=== PATIENT | female | born 1985 | race Hispanic/Latino ===

== ENCOUNTER 2017-01-25 17:50 | Emergency (ER) | payer OTHER ==
[2017-01-25 17:51] VITALS: BMI 32.5
[2017-01-25 17:59] VITALS: BP 119/72; PULSE 82; RESP 18; TEMP 98; O2SAT 99
--- NOTE | 2017-01-25 18:16 | ED PDOC ---
Arrival/HPI - General Chief Complaint: Needle Stick Time Seen by Provider: 01/25/17 18:05 Historian: Patient - History of Present Illness Narrative History of Present Illness (Text): Estefania is a 31 y/o female who presents to the ED for evaluation of needle stick, occurring this evening just prior to arrival. Patient is a surgical sales representative, and was punctured with a suture needle after it had come into contact with her patient. She reports that her patient was a 51 y/o female with a history of diabetes, hypertension, and CHF, who reportedly had a negative hepatitis panel recently drawn on 01/02/17, but has had blood transfusions since she this hepatitis panel was drawn. Patient states she did not see any blood from wound and she was wearing 2 gloves at the time. Betadine was applied to the site after injury. Tetanus is up to date. PMD: Unknown Time/Duration: Prior to Arrival Symptom Onset: Sudden Past Medical History - Provider Review Nursing Documentation Reviewed: Yes - Travel History Have you recently traveled outside [place] w/in the past 3 mons?: No - Past History Past History: No Previous - Infectious Disease Hx of Infectious Diseases: None - Tetanus Immunization Tetanus Immunization: Up to Date - Reproductive Menopause: No - Past Medical History Past Medical History: No Previous - Psychiatric Hx Substance Use: No - Surgical History Hx Tonsillectomy: Yes - Anesthesia Hx Anesthesia: No Hx Anesthesia Reactions: No Hx Malignant Hyperthermia: No - Suicidal Assessment Suicidal Thoughts: No Family/Social History - Physician Review Nursing Documentation Reviewed: Yes Family/Social History: No Known Family HX Smoking Status: Never Smoked Hx Alcohol Use: Yes Frequency of alcohol use: Socially Hx Substance Use: No Allergies/Home Meds Allergies/Adverse Reactions: Allergies No Known Allergies Allergy (Verified 06/17/16 09:36) Review of Systems - Physician Review All systems were reviewed & negative as marked: Yes - Review of Systems Skin: Other (Needle stick) Physical Exam Vital Signs Reviewed: Yes Vital Signs Temp Pulse Resp BP Pulse Ox 01/25/17 17:55 98 F 82 18 119/72 99 Appearance: Positive for: Well-Appearing, Non-Toxic, Comfortable - Systems Exam Head: Present: Atraumatic, Normocephalic Pupils: Present: PERRL Extroacular Muscles: Present: EOMI Mouth: Present: Moist Mucous Membranes Neck: Present: Normal Range of Motion Respiratory/Chest: Present: Clear to Auscultation. No: Respiratory Distress Cardiovascular: Present: Regular Rate and Rhythm Abdomen: No: Rebound, Guarding Back: Present: Normal Inspection Upper Extremity: Present: Normal Inspection, Other (no visible puncture wound noted to right 3rd digit at site of injury) Lower Extremity: Present: Capillary Refill < 2 s Neurological: Present: CN II-XII Intact, Speech Normal Skin: Present: Normal Color (No visual puncture wound on the right 3rd digit). No: Rashes Psychiatric: Present: Alert, Oriented x 3 Medical Decision Making ED Course and Treatment: 01/25/17 Time: 18:05 --Will obtain labs as per needlestick protocol --Patient was offered prophylactic medications, and she declined given low risk of injury Patient is stable for discharge and was instructed to follow up as directed with [email or web address]. Scribe Attestation: Documented by Pippa Faustin, acting as a scribe for Chely Arroyo PA-C Provider Scribe Attestation: All medical record entries made by the Scribe were at my direction and personally dictated by me. I have reviewed the chart and agree that the record accurately reflects my personal performance of the history, physical exam, medical decision making, and the department course for this patient. I have also personally directed, reviewed, and agree with the discharge instructions and disposition. Disposition/Present on Arrival - Present on Arrival Any Indicators Present on Arrival: No History of DVT/PE: No History of Uncontrolled Diabetes: No Urinary Catheter: No History Surgical Site Infection Following: None - Disposition Have Diagnosis and Disposition been Completed?: Yes Diagnosis: Needle stick injury Disposition: HOME/ ROUTINE Disposition Time: 18:28 Condition: STABLE Discharge Instructions (ExitCare): Needle Stick Injuries (ED) Additional Instructions: Follow up as directed with employee health Referrals: [facility] [Outside] Forms: [employer] (Hungarian)
== END 2017-01-25 18:58 | disposition home or self-care (01) ==
LOC: H.ER 17:50
DX: S61.431A Puncture wound without foreign body of right hand, initial encounter (principal); W46.0XXA Contact with hypodermic needle, initial encounter; Y92.238 Other place in hospital as the place of occurrence of the external cause; Y99.0 Civilian activity done for income or pay; E11.9 Type 2 diabetes mellitus without complications; I10 Essential (primary) hypertension; Z77.21 Contact with and (suspected) exposure to potentially hazardous body fluids